=== PATIENT | male | born 1995 | race Two or more races ===

== ENCOUNTER 2017-02-13 11:31 | Emergency (ER) | payer OTHER ==
[2017-02-13 11:56] VITALS: RESP 18
[2017-02-13] MEDS ORDERED: SODIUM CHLORIDE 0.9% 1,000 ML IV STA (12:12)
[2017-02-13] MEDS ORDERED: ONDANSETRON 4 MG/2 ML VIAL IVP STA (12:12)
--- NOTE | 2017-02-13 12:16 | ED ---
General Adult HPI - General Chief complaint: Syncope Stated complaint: fainting Source: patient, RN notes reviewed Mode of arrival: ambulatory Limitations: no limitations - History of Present Illness Initial comments: Patient is a 22-year-old male who presents emergency room today with chief complaint of sickle episode. Patient does admit that he had one vasovagal episode past. States is very similar to today's episode. States he was getting his haircut is home when he began feeling nauseated. States that he gets sick and when he went to go get up states he passed out. Mother at bedside providing history states that he went down onto the ground hitting his back and states that he was shaking for approximately 20 seconds. States that when he came to he was alert. Patient states he remembers sitting in the chair feeling like he was having tunnel vision and next thing he knew he woke up on the ground. He states he felt like it was instantaneous and no time past. Patient states he was alert and aware of his surroundings. States these are similar symptoms that he had once in the past and was checked and told he had a vasovagal episode. Patient admits to still feeling some nausea. He admits to some pain in the right side next to his shoulder where he hit his back. He denies any other complaints or symptoms. Patient denies any recent fever, chills , shortness of breath, chest pain, back pain, abdominal pain, nausea or vomiting , numbness or tingling, dysuria or hematuria, constipation or diarrhea, headaches or visual changes, or any other complaints. - Related Data Home Medications Medication Instructions Recorded Confirmed No Known Home Medications [No 02/13/17 02/13/17 Known Home Medications] Allergies Allergy/AdvReac Type Severity Reaction Status Date / Time Penicillins Allergy Rash/Hives Verified 02/13/17 12:19 Review of Systems ROS Statement: Those systems with pertinent positive or pertinent negative responses have been documented in the HPI. ROS Other: All systems not noted in ROS Statement are negative. Past Medical History Additional Past Medical History / Comment(s): vasovagal History of Any Multi-Drug Resistant Organisms: None Reported Past Surgical History: No Surgical Hx Reported Past Psychological History: No Psychological Hx Reported Smoking Status: Never smoker Past Alcohol Use History: None Reported Past Drug Use History: None Reported General Exam - General Exam Comments Initial Comments: General: The patient is awake and alert, in no distress, and does not appear acutely ill. Eye: Pupils are equal, round and reactive to light, extra-ocular movements are intact. No nystagmus. There is normal conjunctiva bilaterally. No signs of icterus. Ears, nose, mouth and throat: There are moist mucous membranes and no oral lesions. Neck: The neck is supple, there is no tenderness or JVD. Cardiovascular: There is a regular rate and rhythm. No murmur, rub or gallop is appreciated. Respiratory: Lungs are clear to auscultation, respirations are non-labored, breath sounds are equal. No wheezes, stridor, rales, or rhonchi. Gastrointestinal: Soft, non-distended, non-tender abdomen without masses or organomegaly noted. There is no rebound or guarding present. No CVA tenderness. Bowel sounds are unremarkable. Musculoskeletal: Normal ROM, no tenderness. Strength 5/5. Sensation intact. Pulses equal bilaterally 2+. Neurological: A&O x 3. CN II-XII intact, There are no obvious motor or sensory deficits. Coordination appears grossly intact. Speech is normal. Normal finger nose testing. Normal rapid alternating movements. Strength 5/5 in both upper and lower extremities. Normal gait. Normal heel to schuster testing. Normal tandem walking. Skin: Skin is warm and dry and no rashes or lesions are noted. Psychiatric: Cooperative, appropriate mood & affect, normal judgment. Limitations: no limitations Course Vital Signs 02/13/17 11:51 Temperature 98.2 F Pulse Rate 77 Respiratory 18 Rate Blood Pressure 147/75 EKG Findings - EKG Comments: EKG Findings:: EKG performed at 1324: Shows normal sinus rhythm with rhythm at 64 bpm. CA interval 190. QRS 86. QT/QTC 366/377. No acute ST changes. Medical Decision Making - Medical Decision Making Patient's EKG reviewed. Labs reviewed. Patient reexamined at this time shows no signs of distress. Admits to feeling better. Patient does admit to some symptoms once in the past with a vasovagal response. Patient this time will be discharged home placed FAMILY doctor over the next 2 days or return here to emergency room if any symptoms increase or worsen or for any other concerns. - Lab Data Result diagrams: 02/13/17 12:36 02/13/17 12:36 Lab Results 03/21/17 03/21/17 Range/Units 12:36 12:36 WBC 6.6 (3.8-10.6) k/uL RBC 5.50 (4.30-5.90) m/uL Hgb 16.3 (13.0-17.5) gm/dL Hct 48.1 (39.0-53.0) % MCV 87.5 (80.0-100.0) fL MCH 29.6 (25.0-35.0) pg MCHC 33.8 (31.0-37.0) g/dL RDW 12.4 (11.5-15.5) % Plt Count 272 (150-450) k/uL Neutrophils % 73 % Lymphocytes % 17 % Monocytes % 5 % Eosinophils % 3 % Basophils % 1 % Neutrophils # 4.9 (1.3-7.7) k/uL Lymphocytes # 1.1 (1.0-4.8) k/uL Monocytes # 0.3 (0-1.0) k/uL Eosinophils # 0.2 (0-0.7) k/uL Basophils # 0.0 (0-0.2) k/uL Sodium 143 (137-145) mmol/L Potassium 5.1 (3.5-5.1) mmol/L Chloride 102 (98-107) mmol/L Carbon Dioxide 29 (22-30) mmol/L Anion Gap 12 mmol/L BUN 13 (9-20) mg/dL Creatinine 0.97 (0.66-1.25) mg/dL Est GFR (MDRD) Af Amer >60 (>60 ml/min/1.73 sqM) Est GFR (MDRD) Non-Af >60 (>60 ml/min/1.73 sqM) Glucose 98 (74-99) mg/dL Calcium 10.1 (8.4-10.2) mg/dL Total Bilirubin 1.0 (0.2-1.3) mg/dL AST 30 (17-59) U/L ALT 48 (21-72) U/L Alkaline Phosphatase 64 (38-126) U/L Total Protein 7.8 (6.3-8.2) g/dL Albumin 4.8 (3.5-5.0) g/dL Disposition Clinical Impression: Syncope Disposition: HOME SELF-CARE Condition: Good Instructions: Syncope (ED) Additional Instructions: Please follow-up with family doctor in the next 2 days. Please return to emergency room if the symptoms increase or worsen or for any other concerns. Referrals: None,Stated [Primary Care Provider] - 1-2 days Deanne Chatterjee DO [REFERRING] - 1-2 days Time of Disposition: 13:28
[2017-02-13 12:51] LABS: Basophils % (A) 1 %; CH 30.3; CHCM 34.8; Eosinophils # (A) 0.2 k/uL (0-0.7); Eosinophils % (A) 3 %; HCT 48.1 % (39.0-53.0); HDW 2.51; HGB 16.3 gm/dL (13.0-17.5); Luc # (Auto) 0.13; Luc % (Auto) 2; Lymphocytes # (A) 1.1 k/uL (1.0-4.8); Lymphocytes % (A) 17 %; MCH 29.6 pg (25.0-35.0); MCHC 33.8 g/dL (31.0-37.0); MCV 87.5 fL (80.0-100.0); Mean Platelet Volume 6.5; Monocytes # (A) 0.3 k/uL (0-1.0); Monocytes % (A) 5 %; Neutrophils # (A) 4.9 k/uL (1.3-7.7); Neutrophils % (A) 73 %; RDW 12.4 % (11.5-15.5); WBC 6.6 k/uL (3.8-10.6); WBC (Perox) 6.55
[2017-02-13 12:59] LABS: ALT 48 U/L (21-72); AST 30 U/L (17-59); Alkaline Phosphatase 64 U/L (38-126); Anion Gap 12 mmol/L; Blood Urea Nitrogen 13 mg/dL (9-20); Calcium 10.1 mg/dL (8.4-10.2); Carbon Dioxide 29 mmol/L (22-30); Chloride 102 mmol/L (98-107); Glucose 98 mg/dL (74-99); Non-African American GFR(MDRD) >60 (>60 ml/min/1.73 sqM); Potassium 5.1 mmol/L (3.5-5.1); Sodium 143 mmol/L (137-145); Total Protein 7.8 g/dL (6.3-8.2)
--- NOTE | 2017-02-13 13:02 | XR ---
EXAMINATION TYPE: XR chest 2V DATE OF EXAM: 02/13/2017 12:58 PM COMPARISON: 04/17/2012 HISTORY: 22-year-old male with syncope, seizure this morning TECHNIQUE: PA and lateral views FINDINGS: The cardiomediastinal silhouette, aorta, and pulmonary vasculature are within normal limits. Lungs an d pleural spaces are clear. IMPRESSION: No acute cardiopulmonary process.
[2017-02-13 13:39] VITALS: BP 118/67; PULSE 78; TEMP 98.3
== END 2017-02-13 13:39 | disposition home or self-care (01) ==
LOC: EC 11:31
DX: R55 Syncope and collapse (principal); Z88.0 Allergy status to penicillin
CPT/HCPCS: 96374 ×2; 96361 ×2; 99284 ×2; 36415; 93005; 80053; 85025; 71020; J2405

== ENCOUNTER 2017-02-22 12:21 | Day surgery (SDC) | payer OTHER ==
[~2017-02-22 12:21] MED LIST: SODIUM CHLORIDE 0.9% 1,000 ML IV SCH
[2017-02-22] MEDS ORDERED: SODIUM CHLORIDE 0.9% 1,000 ML IV ONE (12:37)
[2017-02-22 12:38] VITALS: BP 142/78; PULSE 90; RESP 16; TEMP 98
--- NOTE | 2017-02-22 17:58 | P.PCN ---
Preoperative Diagnosis: Twelve-lead ECG report Sinus mechanism narrow QRS normal ST segments normal QT interval early repolarization abnormality no delta waves no epsilon waves Tilt table test report Baseline blood pressure 136/70 mmHg Baseline heart rate 75 beats a minute patient was tilted upright at night was 70 per protocol within 3-4 minutes there was increase in heart rate 208 beats a minute and his heart rate remained between 110-120 beats a minute without any change in blood pressure when he was laid supine his heart rate normalized to 83 beats a minute no symptoms noted Impression Orthostatic intolerance
== END 2017-02-22 14:30 | disposition home or self-care (01) ==
LOC: CATHEP 12:21
PROVIDERS: ATTEND Internal Medicine Clinical Cardiac Electrophysiology
DX: R55 Syncope and collapse (principal)
CPT/HCPCS: 93005; 93660